=== PATIENT | male | born 1990 | race Caucasian/White ===

== ENCOUNTER 2016-11-23 11:19 | Emergency (ER) | payer SELFPAY ==
[~2016-11-23] VITALS: Ht 180.3 cm; Wt 100.0 kg
[~2016-11-23 11:19] MED LIST: AUGM875T PO; BACT2OIN TOP; BACT800T5 PO; CEPH500 PO; DESE1CRE TOP; DICL50TA3 PO
[2016-11-23 11:20] VITALS: BP 167/104; PULSE 82; RESP 18; TEMP 97.9; O2SAT 98
== END 2016-11-23 14:20 | disposition left against medical advice (07) ==
LOC: NED 11:19
DX: R07.9 Chest pain, unspecified (principal)
CPT/HCPCS: 99281

== ENCOUNTER 2017-01-15 17:44 | Emergency (ER) | payer SELFPAY ==
[~2017-01-15] VITALS: Ht 180.3 cm; Wt 86.4 kg
[2017-01-15] MEDS ORDERED: SODIUM CHLOR 0.9% 1000 ML INJ 1,000 ML IV SCH (17:53)
[2017-01-15 17:54] VITALS: BP 136/94; PULSE 68; RESP 18; TEMP 98.4; O2SAT 100
[2017-01-15 17:57] VITALS: BP 136/94; PULSE 80; RESP 16; O2SAT 100
[2017-01-15] MEDS ORDERED: MORPHINE SULFATE 4 MG/ML INJ IV ONE (18:00)
[2017-01-15] MEDS ORDERED: ONDANSETRON HCL 4 MG/2 ML VIAL IVP ONE (18:00)
[2017-01-15] MEDS ORDERED: DIPHTH/TETANUS/ACEL PERTUSSIS (BOOSTER) 0.5 ML VIAL/PFS IM ONE (18:00)
--- NOTE | 2017-01-15 18:11 | PD ---
HPI Chief Complaint: Head Injury Time Seen by Provider: 17:53 Travel History International Travel<30 days: No Contact w/Intl Traveler<30days: No Traveled to known affect area: No History of Present Illness HPI 26-year-old male came to the emergency room with history of a large tree limb falling on his head while he was trying to help his friend cutting a tree. Patient had positive loss of consciousness and some retrograde amnesia. He was brought in boarded and collared by EMS. Upon arrival patient had a GCS of 15 and was answering questions appropriately but seemed anxious. He is complaining that his left shoulder on the scapular area hurts. His called 911 when she heard the noise outside the house and went running and found him unconscious. Patient is otherwise a healthy person. Vital signs were relatively stable. [facility] Past Medical History Narrative Medical List of his past medical, surgical, social and family history is reviewed from the nursing note. Asthma: Yes Anxiety: Yes Depression: Yes Respiratory: Yes Social History Alcohol Use: No Tobacco Use: No Substance Use: No Allergies-Medications (Allergen,Severity, Reaction): Coded Allergies: No Known Allergies (Unverified , 01/15/17) Comments No known drug allergies. Reported Meds & Prescriptions Reported Meds & Active Scripts Active Ibuprofen 600 Mg Tab 600 Mg PO Q6H PRN Keflex (Cephalexin) 250 Mg Cap 250 Mg PO Q6H 7 Days Narrative Medication List of his home medications reviewed from the nursing note. Review of Systems Except as stated in HPI: all other systems reviewed are Neg Physical Exam Narrative GENERAL: Awake, alert, anxious, moderate distress, boarded and collared SKIN: Focused skin assessment warm/dry. 3 cm laceration over the right eyebrow , bleeding controlled. Left CVA abrasion HEAD: Atraumatic. Normocephalic. EYES: Pupils equal and round. No scleral icterus. No injection or drainage. Good extraocular eye movement. ENT: No nasal bleeding or discharge. Mucous membranes pink and moist. No intraoral injuries NECK: Trachea midline. No JVD. CARDIOVASCULAR: Regular rate and rhythm. No murmur appreciated. RESPIRATORY: No accessory muscle use. Clear to auscultation. Breath sounds equal bilaterally. GASTROINTESTINAL: Abdomen soft, non-tender, nondistended. Hepatic and splenic margins not palpable. MUSCULOSKELETAL: No obvious deformities. No clubbing. No cyanosis. No edema. Patient was rolled off the backboard. No step-offs or point tenderness. Left scapular tenderness NEUROLOGICAL: Awake and alert. No obvious cranial nerve deficits. Motor grossly within normal limits. Normal speech. PSYCHIATRIC: Appropriate mood and affect; insight and judgment normal. Data Data Last Documented VS Vital Signs Date Time Temp Pulse Resp B/P Pulse Ox O2 Delivery O2 Flow Rate FiO2 01/15/17 18:43 66 18 144/78 99 Room Air 01/15/17 17:54 98.4 Orders Basic Metabolic Panel (Bmp) (01/15/17 17:53) Complete Blood Count With Diff (01/15/17 17:53) Ct Brain W/O Iv Contrast(Rout) (01/15/17 17:53) Ct Cerv Spine W/O Contrast (01/15/17 17:53) Ct Abd/Pel W Iv Contrast(Rout) (01/15/17 17:53) Ct Thorax/ Chest W Iv Contrast (01/15/17 17:53) Morphine Inj (Morphine Inj) (01/15/17 18:00) Ondansetron Inj (Zofran Inj) (01/15/17 18:00) Rhfq-Fjx-Vfkhui (Booster) Inj (Boostrix (01/15/17 18:00) Sodium Chlor 0.9% 1000 Ml Inj (Ns 1000 M (01/15/17 17:53) Lidocai-Epi 1%-1:100,000 Inj (Xylocaine- (01/15/17 18:30) Ketorolac Inj (Toradol Inj) (01/15/17 19:15) Iohexol 350 Inj (Omnipaque 350 Inj) (01/15/17 19:36) Labs Laboratory Tests Test 01/15/17 18:12 White Blood Count 8.6 TH/MM3 Red Blood Count 4.90 MIL/MM3 Hemoglobin 14.8 GM/DL Hematocrit 44.0 % Mean Corpuscular Volume 89.9 FL Mean Corpuscular Hemoglobin 30.1 PG Mean Corpuscular Hemoglobin 33.5 % Concent Red Cell Distribution Width 14.0 % Platelet Count 216 TH/MM3 Mean Platelet Volume 8.2 FL Neutrophils (%) (Auto) 62.2 % Lymphocytes (%) (Auto) 25.4 % Monocytes (%) (Auto) 7.6 % Eosinophils (%) (Auto) 4.0 % Basophils (%) (Auto) 0.8 % Neutrophils # (Auto) 5.3 TH/MM3 Lymphocytes # (Auto) 2.2 TH/MM3 Monocytes # (Auto) 0.7 TH/MM3 Eosinophils # (Auto) 0.3 TH/MM3 Basophils # (Auto) 0.1 TH/MM3 CBC Comment DIFF FINAL Differential Comment Sodium Level 141 MEQ/L Potassium Level 3.8 MEQ/L Chloride Level 106 MEQ/L Carbon Dioxide Level 28.5 MEQ/L Anion Gap 7 MEQ/L Blood Urea Nitrogen 15 MG/DL Creatinine 1.12 MG/DL Estimat Glomerular Filtration 79 ML/MIN Rate Random Glucose 88 MG/DL Calcium Level 8.6 MG/DL MDM Medical Decision Making Medical Screen Exam Complete: Yes Emergency Medical Condition: Yes Medical Record Reviewed: Yes Differential Diagnosis Intracranial bleed, skull fracture, cervical fracture, intrathoracic injury, scapular fracture, intra-abdominal injury Narrative Course 6:11 PM awaiting for the blood test results of the CAT scan to be done and resulted. Patient is getting IV fluid and pain medicated for pain. His does not remember his last tetanus dose. Patient will get a tetanus shot today. Eventually the laceration will be repaired by the PA. Please refer to her procedure notes. 6:55 PM all the blood test results have returned and they're within normal limit. Awaiting for the CAT scan to be done and resulted. 8 PM CAT scan results of back and within normal limits. I will discharge this patient home. Procedures EKG Prior to Arrival: No Diagnosis Primary Impression: Blunt trauma Additional Impressions: Head injury Qualified Code: S09.90XA - Head injury, initial encounter Facial laceration Qualified Code: S01.81XA - Facial laceration, initial encounter Contusion Qualified Code: S20.222A - Contusion of left back wall of thorax, initial encounter Concussion Qualified Code: S06.0X1A - Concussion, with LOC of 30 min or less, initial encounter Referrals: Primary Care Physician 2 days Additional Instructions: Please return to the ER if the condition worsens or any other new concerns. Take the medication as per the prescription direction. Follow-up with your primary care in couple days. The stitches need to be taken out in 7-10 days. Med/Other Pt SpecificInfo: Prescription(s) given Scripts Ibuprofen 600 Mg Hhr006 Mg PO Q6H PRN (Pain/Inflammation) #40 TAB Ref 0 Prov:Renny Tran MD 01/15/17 Cephalexin (Keflex)250 Mg Sow248 Mg PO Q6H 7 Days Ref 0 Prov:Renny Tran MD 01/15/17 Disposition: 01 DISCHARGE HOME Condition: Stable Renny Tran MD January 15, 2017 18:11
--- NOTE | 2017-01-15 18:16 | PD ---
Physical Exam Date Seen by Provider: January 15, 2017 Time Seen by Provider: 18:15 Data Data Last Documented VS Vital Signs Date Time Temp Pulse Resp B/P Pulse Ox O2 Delivery O2 Flow Rate FiO2 01/15/17 18:43 66 18 144/78 99 Room Air 01/15/17 17:54 98.4 Orders Basic Metabolic Panel (Bmp) (01/15/17 17:53) Complete Blood Count With Diff (01/15/17 17:53) Ct Brain W/O Iv Contrast(Rout) (01/15/17 17:53) Ct Cerv Spine W/O Contrast (01/15/17 17:53) Ct Abd/Pel W Iv Contrast(Rout) (01/15/17 17:53) Ct Thorax/ Chest W Iv Contrast (01/15/17 17:53) Morphine Inj (Morphine Inj) (01/15/17 18:00) Ondansetron Inj (Zofran Inj) (01/15/17 18:00) Nfcu-Mun-Pvkgtq (Booster) Inj (Boostrix (01/15/17 18:00) Sodium Chlor 0.9% 1000 Ml Inj (Ns 1000 M (01/15/17 17:53) Lidocai-Epi 1%-1:100,000 Inj (Xylocaine- (01/15/17 18:30) Ketorolac Inj (Toradol Inj) (01/15/17 19:15) Labs Laboratory Tests Test 01/15/17 18:12 White Blood Count 8.6 TH/MM3 Red Blood Count 4.90 MIL/MM3 Hemoglobin 14.8 GM/DL Hematocrit 44.0 % Mean Corpuscular Volume 89.9 FL Mean Corpuscular Hemoglobin 30.1 PG Mean Corpuscular Hemoglobin 33.5 % Concent Red Cell Distribution Width 14.0 % Platelet Count 216 TH/MM3 Mean Platelet Volume 8.2 FL Neutrophils (%) (Auto) 62.2 % Lymphocytes (%) (Auto) 25.4 % Monocytes (%) (Auto) 7.6 % Eosinophils (%) (Auto) 4.0 % Basophils (%) (Auto) 0.8 % Neutrophils # (Auto) 5.3 TH/MM3 Lymphocytes # (Auto) 2.2 TH/MM3 Monocytes # (Auto) 0.7 TH/MM3 Eosinophils # (Auto) 0.3 TH/MM3 Basophils # (Auto) 0.1 TH/MM3 CBC Comment DIFF FINAL Differential Comment Sodium Level 141 MEQ/L Potassium Level 3.8 MEQ/L Chloride Level 106 MEQ/L Carbon Dioxide Level 28.5 MEQ/L Anion Gap 7 MEQ/L Blood Urea Nitrogen 15 MG/DL Creatinine 1.12 MG/DL Estimat Glomerular Filtration 79 ML/MIN Rate Random Glucose 88 MG/DL Calcium Level 8.6 MG/DL MDM Supervised Visit with STEVEN: No Narrative Course This patient was initially evaluated by Dr. Tran. Please see her note for those details. On my exam the patient is alert, laying flat in a c-collar. There is a 3 cm laceration in the right eyebrow. There is a 3-4 cm linear abrasion in the midline of the forehead. Laceration repair was performed. Please see my procedure note for details. Dr. Tran retains care of this patient. Please see her note for disposition. Procedures Procedure Narrative LACERATION LOCATION: Right eyebrow LENGTH: 3 cm NUMBER OF STITCHES/GINA: 7 REPAIR: The area of the laceration was prepped with Betadine and sterilely draped. The laceration was infiltrated with 1% lidocaine with epinephrine. The wound was copiously irrigated and explored without evidence of foreign body, tendon injury or neurovascular injury. The wound was closed using 6-0 nylon. This was a single layer repair. A sterile dressing was applied. The patient was advised to keep the dressing clean and dry. Patient tolerated the procedure well. Scripts No Active Prescriptions or Reported Meds Mitzy Dela Cruz January 15, 2017 18:16
[2017-01-15] MEDS ORDERED: LIDOCAINE 1%/EPINEPHrine 1:100,000 SOLN 20 ML VIAL INFIL ONE (18:30)
[2017-01-15 18:36] LABS: AUTOMATED NEUTROPHIL # 5.3 TH/MM3 (1.8-7.7); BASOPHIL # 0.1 TH/MM3 (0-0.2); BASOPHIL % 0.8 % (0.0-2.0); EOSINOPHIL # 0.3 TH/MM3 (0-0.4); HEMO FLAGS DIFF FINAL; LYMPH % 25.4 % (9.0-44.0); LYMPHOCYTE # 2.2 TH/MM3 (1.0-4.8); MEAN CELL VOLUME 89.9 FL (80.0-100.0); MEAN CORPUSCULAR HEMOGLOBIN 30.1 PG (27.0-34.0); MEAN CORPUSCULAR HGB CONC 33.5 % (32.0-36.0); MONO % 7.6 % (0.0-8.0); NEUT % 62.2 % (16.0-70.0); PLATELET COUNT 216 TH/MM3 (150-450); WHITE BLOOD COUNT 8.6 TH/MM3 (4.0-11.0)
[2017-01-15 18:43] VITALS: BP 144/78; PULSE 66; RESP 18; O2SAT 99
[2017-01-15 18:52] LABS: BICARBONATE 28.5 MEQ/L (21.0-32.0); POTASSIUM 3.8 MEQ/L (3.5-5.1)
[2017-01-15] MEDS ORDERED: KETOROLAC TROMETHAMINE 30 MG/ML (IVP) VIAL IV PUSH ONE (19:15)
[2017-01-15] MEDS ORDERED: IOHEXOL 350 MG/ML 10 ML VIAL (for RAD DIAG) IV ONE (19:36)
--- NOTE | 2017-01-15 19:48 | RADRPT ---
EXAM DATE/TIME: 01/15/2017 19:29 [facility] COMPARISON: No previous studies available for comparison. INDICATIONS : Trauma, tree limb fell on head. Laceration above right eye. RADIATION DOSE: 66.83 CTDIvol (mGy) MEDICAL HISTORY : None SURGICAL HISTORY : None. ENCOUNTER: Initial ACUITY: 1 day PAIN SCALE: 6/10 LOCATION: Left cranial TECHNIQUE: Multiple contiguous axial images were obtained of the head. Using automated exposure control and adj ustment of the mA and/or kV according to patient size, radiation dose was kept as low as reasonably a chievable to obtain optimal diagnostic quality images. FINDINGS: CEREBRUM: The ventricles are normal for age. No evidence of midline shift, mass lesion, hemorrhage or acute in farction. No extra-axial fluid collections are seen. POSTERIOR FOSSA: The cerebellum and brainstem are intact. The 4th ventricle is midline. The cerebellopontine angle i s unremarkable. EXTRACRANIAL: The visualized portion of the orbits is intact. Right-sided facial swelling. SKULL: The calvaria is intact. No evidence of skull fracture. CONCLUSION: No acute intracranial disease. Murphy Johnson MD on January 15, 2017 at 19:45 Board Certified Radiologist. This report was verified electronically.
--- NOTE | 2017-01-15 19:49 | RADRPT ---
EXAM DATE/TIME: 01/15/2017 19:29 [facility] COMPARISON: No previous studies available for comparison. INDICATIONS : Trauma, tree limb fell on head. Left shoulder pain. RADIATION DOSE: 21.57 CTDIvol (mGy) MEDICAL HISTORY : None SURGICAL HISTORY : None. ENCOUNTER: Initial ACUITY: 1 day PAIN SCALE: 4/10 LOCATION: Left neck TECHNIQUE: Volumetric scanning of the cervical spine was performed. Multiplanar reconstructions in the sagittal, coronal and oblique axial planes were performed. Using automated exposure control and adjustment o f the mA and/or kV according to patient size, radiation dose was kept as low as reasonably achievable to obtain optimal diagnostic quality images. FINDINGS: VERTEBRAE: Normal vertebral body height. ALIGNMENT: No evidence of subluxation. C2-C3: The bony spinal canal is normal in size. No evidence of disc bulge or herniation. The neural forami na are bilaterally patent. C3-C4: The bony spinal canal is normal in size. No evidence of disc bulge or herniation. The neural forami na are bilaterally patent. C4-C5: The bony spinal canal is normal in size. No evidence of disc bulge or herniation. The neural forami na are bilaterally patent. C5-C6: The bony spinal canal is normal in size. No evidence of disc bulge or herniation. The neural forami na are bilaterally patent. C6-C7: The bony spinal canal is normal in size. No evidence of disc bulge or herniation. The neural forami na are bilaterally patent. C7-T1: The bony spinal canal is normal in size. No evidence of disc bulge or herniation. The neural forami na are bilaterally patent. CONCLUSION: No fracture or subluxation. Murphy Johnson MD on January 15, 2017 at 19:46 Board Certified Radiologist. This report was verified electronically.
--- NOTE | 2017-01-15 19:53 | RADRPT ---
EXAM DATE/TIME: 01/15/2017 19:36 [facility] COMPARISON: No previous studies available for comparison. INDICATIONS : Trauma, tree limb fell on head. Left shoulder pain. IV CONTRAST: 96 cc Omnipaque 350 (iohexol) IV ; Cumulative dose for multiple exams. RADIATION DOSE: 16.31 CTDIvol (mGy) ; Combined studies - Thorax/Abdomen/Pelvis MEDICAL HISTORY : None SURGICAL HISTORY : None. ENCOUNTER: Initial ACUITY: 1 day PAIN SCALE: 6/10 LOCATION: Left chest TECHNIQUE: Volumetric scanning of the chest was performed. Using automated exposure control and adjustment of t he mA and/or kV according to patient size, radiation dose was kept as low as reasonably achievable to obtain optimal diagnostic quality images. FINDINGS: LUNGS: There is no consolidation or pneumothorax. No concerning pulmonary nodule is visualized. PLEURA: There is no pleural thickening or pleural effusion. MEDIASTINUM: The heart and great vessels demonstrate no acute abnormality. There is no mediastinal or hilar lymph adenopathy. AXILLAE: Within normal limits. No lymphadenopathy. SKELETAL: Within normal limits for patient age. MISCELLANEOUS: The visualized upper abdominal organs demonstrate no acute abnormality. CONCLUSION: No acute thoracic process. Murphy Johnson MD on January 15, 2017 at 19:50 Board Certified Radiologist. This report was verified electronically.
--- NOTE | 2017-01-15 19:55 | RADRPT ---
EXAM DATE/TIME: 01/15/2017 19:36 [facility] COMPARISON: No previous studies available for comparison. INDICATIONS : Trauma, tree limb fell on head. IV CONTRAST: 96 cc Omnipaque 350 (iohexol) IV ; Cumulative dose for multiple exams. ORAL CONTRAST: No oral contrast ingested. RADIATION DOSE: 16.31 CTDIvol (mGy) ; Combined studies - Thorax/Abdomen/Pelvis MEDICAL HISTORY : None SURGICAL HISTORY : None. ENCOUNTER: Initial ACUITY: 1 day PAIN SCALE: 3/10 LOCATION: Bilateral abdomen TECHNIQUE: Volumetric scanning of the abdomen and pelvis was performed. Using automated exposure control and ad justment of the mA and/or kV according to patient size, radiation dose was kept as low as reasonably achievable to obtain optimal diagnostic quality images. FINDINGS: LOWER LUNGS: The visualized lower lungs are clear. LIVER: Homogeneous density without lesion. There is no dilation of the biliary tree. No calcified gallston es. SPLEEN: Normal size without lesion. PANCREAS: Within normal limits. KIDNEYS: Normal in size and shape. There is no mass, stone or hydronephrosis. ADRENAL GLANDS: Within normal limits. VASCULAR: There is no aortic aneurysm. BOWEL/MESENTERY: The stomach, small bowel, and colon demonstrate no acute abnormality. There is no free intraperitone al air or fluid. ABDOMINAL WALL: Within normal limits. RETROPERITONEUM: There is no lymphadenopathy. BLADDER: No wall thickening or mass. REPRODUCTIVE: Within normal limits. INGUINAL: There is no lymphadenopathy or hernia. MUSCULOSKELETAL: Within normal limits for patient age. CONCLUSION: No acute intra-abdominal process. Murphy Johnson MD on January 15, 2017 at 19:51 Board Certified Radiologist. This report was verified electronically.
[2017-01-15] MEDS ORDERED: IBUP-232 PO (20:03)
[2017-01-15] MEDS ORDERED: CEPH-459 PO (20:03)
== END 2017-01-15 20:22 | disposition home or self-care (01) ==
LOC: NEPD 17:44
DX: S06.9X9A Unspecified intracranial injury with loss of consciousness of unspecified duration, initial encounter (principal); S01.111A Laceration without foreign body of right eyelid and periocular area, initial encounter; S20.222A Contusion of left back wall of thorax, initial encounter; S06.0X1A Concussion with loss of consciousness of 30 minutes or less, initial encounter; W20.8XXA Other cause of strike by thrown, projected or falling object, initial encounter; Y93.H9 Activity, other involving exterior property and land maintenance, building and construction; Y92.007 Garden or yard of unspecified non-institutional (private) residence as the place of occurrence of the external cause
CPT/HCPCS: 12013; 70450; 71260; 72125; 74177; 80048; 85025; 90471; 90715; 96361; 96374; 96375; 99284; J1885; J2270; J2405; J7030; Q9967

== ENCOUNTER 2017-02-15 18:33 | Emergency (ER) | payer SELFPAY ==
[~2017-02-15] VITALS: Ht 180.3 cm; Wt 90.0 kg
[~2017-02-15 18:33] MED LIST changes: -AUGM875T PO; -BACT2OIN TOP; -BACT800T5 PO; +CEPH-459 PO; -CEPH500 PO; -DESE1CRE TOP; -DICL50TA3 PO; +IBUP-232 PO
[2017-02-15 18:38] VITALS: BP 157/76; PULSE 102; RESP 20; TEMP 99.1; O2SAT 98
--- NOTE | 2017-02-15 21:32 | PD ---
HPI Chief Complaint: Skin Problem Time Seen by Provider: 21:32 Travel History International Travel<30 days: No Contact w/Intl Traveler<30days: No Traveled to known affect area: No History of Present Illness HPI 26 YO M presents to the ED for evaluation of 2 day history of painful "spider bite" of the left buttock. Patient can identify no acute injury to the area. He endorses chills and low-grade fever. He denies nausea, vomiting. He denies history of MRSA. He states that tetanus immunization is up-to-date. Also complains of "months long" history of rash distributed over the torso. Denies pruritis. Denies new exposures. PFSH Past Medical History Asthma: Yes Anxiety: Yes Depression: Yes Respiratory: Yes Social History Alcohol Use: No Tobacco Use: No Substance Use: No Allergies-Medications (Allergen,Severity, Reaction): Coded Allergies: No Known Allergies (Unverified , 02/15/17) Reported Meds & Prescriptions Reported Meds & Active Scripts Active Ibuprofen 800 Mg Tab 800 Mg PO Q8H PRN Keflex (Cephalexin) 500 Mg Cap 500 Mg PO Q8H Bactrim DS (Sulfamethoxazole-Trimethoprim) 800-160 Mg Tab 1 Tab PO BID Ketoconazole Topical 2% Sham 1 Applic TOPICAL DAILY Review of Systems Except as stated in HPI: all other systems reviewed are Neg Physical Exam Narrative GENERAL: Well-nourished, well-developed nontoxic appearing white male in no acute distress. SKIN: There is an indurated area left of the gluteal cleft which measures about 4 cm in diameter. It is mildly fluctuant but there is no pointing or drainage. There is a zone of inflammation around it but no lymphangitis. SKIN: Focused skin assessment warm/dry. Patient has several large hypopigmented plaques of the chest and back which are consistent with tinea versicolor. HEAD: Normocephalic. EYES: No scleral icterus. No injection or drainage. NECK: Supple, trachea midline. No JVD or lymphadenopathy. CARDIOVASCULAR: Regular rate and rhythm without murmurs, gallops, or rubs. RESPIRATORY: Breath sounds clear and equal bilaterally. No accessory muscle use. GASTROINTESTINAL: Abdomen soft, non-tender, nondistended. Active bowel sounds MUSCULOSKELETAL: No cyanosis, or edema. Ambulatory. Moves the extremities spontaneously. BACK: Nontender without obvious deformity. No CVA tenderness. Data Data Last Documented VS Vital Signs Date Time Temp Pulse Resp B/P Pulse Ox O2 Delivery O2 Flow Rate FiO2 02/15/17 23:18 101 18 148/68 98 Room Air 02/15/17 21:51 99.1 Orders Basic Metabolic Panel (Bmp) (02/15/17 21:35) Complete Blood Count With Diff (02/15/17 21:35) Blood Culture (02/15/17 21:35) Wound Culture And Gram Stain (02/15/17 21:35) Iv Access Insert/Monitor (02/15/17 21:35) Ketorolac Inj (Toradol Inj) (02/15/17 21:45) Sodium Chloride 0.9% Flush (Ns Flush) (02/15/17 21:45) Clindamycin Inj (Cleocin Inj) (02/15/17 21:45) Lidocaine 1% Inj (50 Ml) (Xylocaine 1% I (02/15/17 21:45) Acetamin-Hydrocod 325-5 Mg ([place] 5-325 (02/15/17 21:45) Labs Laboratory Tests Test 02/15/17 21:40 White Blood Count 11.4 TH/MM3 Red Blood Count 4.84 MIL/MM3 Hemoglobin 14.6 GM/DL Hematocrit 42.9 % Mean Corpuscular Volume 88.6 FL Mean Corpuscular Hemoglobin 30.2 PG Mean Corpuscular Hemoglobin 34.1 % Concent Red Cell Distribution Width 13.1 % Platelet Count 211 TH/MM3 Mean Platelet Volume 8.3 FL Neutrophils (%) (Auto) 70.8 % Lymphocytes (%) (Auto) 18.6 % Monocytes (%) (Auto) 8.3 % Eosinophils (%) (Auto) 1.4 % Basophils (%) (Auto) 0.9 % Neutrophils # (Auto) 8.1 TH/MM3 Lymphocytes # (Auto) 2.1 TH/MM3 Monocytes # (Auto) 0.9 TH/MM3 Eosinophils # (Auto) 0.2 TH/MM3 Basophils # (Auto) 0.1 TH/MM3 CBC Comment DIFF FINAL Differential Comment Sodium Level 135 MEQ/L Potassium Level 3.9 MEQ/L Chloride Level 98 MEQ/L Carbon Dioxide Level 27.2 MEQ/L Anion Gap 10 MEQ/L Blood Urea Nitrogen 19 MG/DL Creatinine 1.08 MG/DL Estimat Glomerular Filtration 83 ML/MIN Rate Random Glucose 92 MG/DL Calcium Level 9.2 MG/DL [facility] Medical Decision Making Medical Screen Exam Complete: Yes Emergency Medical Condition: Yes Differential Diagnosis abscess versus cellulitis versus pityriasis versus tinea versicolor versus Narrative Course 26 YO M presents to the ED for evaluation of 2 day history of painful "spider bite" of the left buttock. Patient can identify no acute injury to the area. He endorses chills and low-grade fever. He denies nausea, vomiting. He denies history of MRSA. He states that tetanus immunization is up-to-date. Also complains of "months long" history of rash distributed over the torso. Denies pruritis. Denies new exposures. Vitals reviewed. Physical exam reveals an abscess is left of the gluteal cleft and several large, hypopigmented areas on the abdomen and back that are consistent with tinea versicolor. Blood cultures and wound cultures were obtained. Abscess I&D was performed. See my procedure note for details. Patient was administered 900 mg clindamycin IV. Lab work is unremarkable. He is prescribed a course of Bactrim, Keflex and ibuprofen. He is instructed take the antibiotics as prescribed, return to the ED in 2 days for packing removal and wound evaluation, sooner if symptoms worsen. He was prescribed Q cause all shampoo and given detailed instructions in its use. He indicated understanding of the discharge instructions and is agreeable to the care plan. This patient is stable and discharged home. Diagnosis Primary Impression: Abscess Additional Impression: Tinea versicolor Referrals: Primary Care Physician Patient Instructions: Abscess (GEN), General Instructions Additional Instructions: Rest, hydrate. Do not change the dressing for 24 hours. You may bathe normally. Do not submerge the wound. After bathing pat of wound dry. Allow the wound to air dry for 10-15 minutes. Apply a thin layer of antibiotic ointment and a clean, dry dressing. Take the antibiotics as they are prescribed, even if your symptoms resolve. 800 mg ibuprofen up to 3 times a day, as prescribed,, as needed. Return to the ED in 48 hours for packing removal and wound recheck. Apply ketoconazole shampoo 5 minutes a day, rinse thoroughly. Repeat until rash clears. Return to the ED for any urgent or emergent medical condition. Med/Other Pt SpecificInfo: Prescription(s) given Scripts Ibuprofen 800 Mg [id number] Mg PO Q8H PRN (Pain/Inflammation) #15 TAB Ref 0 Prov:Nora Prieto 02/15/17 Cephalexin (Keflex)500 Mg Iwn859 Mg PO Q8H #30 CAP Ref 0 Prov:Nora Prieto 02/15/17 Sulfamethoxazole-Trimethoprim (Bactrim DS)800-160 Mg Tab1 Tab PO BID #14 TAB Ref 0 Prov:Nora Prieto 02/15/17 Ketoconazole Topical 2% Sham1 Applic TOPICAL DAILY #50 BOTTLE Ref 0 Prov:Nora Prieto 02/15/17 Disposition: 01 DISCHARGE HOME Condition: Stable Mitzy Dela Cruz Feb 15, 2017 21:32
[2017-02-15] MEDS ORDERED: KETOROLAC TROMETHAMINE 30 MG/ML (IVP) VIAL IVP ONE (21:45)
[2017-02-15] MEDS ORDERED: ACETAMINOPHEN/HYDROcodone 325 MG/5 MG TAB PO ONE (21:45)
[2017-02-15] MEDS ORDERED: SODIUM CHLORIDE 0.9% FLUSH 10 ML FLUSH IVF PRN (21:45)
[2017-02-15] MEDS ORDERED: CLINDAMYCIN INJ 900 MG in SODIUM CHLORIDE 0.9% INJ 100 ML IV ONE (21:45)
[2017-02-15] MEDS ORDERED: LIDOCAINE HCL 1% 50 ML VIAL INFIL ONE (21:45)
[2017-02-15 21:51] VITALS: BP 170/79; PULSE 103; RESP 18; TEMP 99.1; O2SAT 95
[2017-02-15 21:58] LABS: AUTOMATED NEUTROPHIL # 8.1 TH/MM3 (1.8-7.7); BASOPHIL # 0.1 TH/MM3 (0-0.2); BASOPHIL % 0.9 % (0.0-2.0); EOSINOPHIL # 0.2 TH/MM3 (0-0.4); EOSINOPHIL % 1.4 % (0.0-4.0); HEMATOCRIT 42.9 % (39.0-51.0); HEMO FLAGS DIFF FINAL; LYMPH % 18.6 % (9.0-44.0); LYMPHOCYTE # 2.1 TH/MM3 (1.0-4.8); MEAN CELL VOLUME 88.6 FL (80.0-100.0); MEAN CORPUSCULAR HEMOGLOBIN 30.2 PG (27.0-34.0); MEAN CORPUSCULAR HGB CONC 34.1 % (32.0-36.0); MONO % 8.3 % (0.0-8.0); NEUT % 70.8 % (16.0-70.0); PLATELET COUNT 211 TH/MM3 (150-450); RED BLOOD COUNT 4.84 MIL/MM3 (4.50-5.90); RED CELL DISTRIBUTION WIDTH 13.1 % (11.6-17.2); WHITE BLOOD COUNT 11.4 TH/MM3 (4.0-11.0)
[2017-02-15 22:26] LABS: BICARBONATE 27.2 MEQ/L (21.0-32.0); POTASSIUM 3.9 MEQ/L (3.5-5.1)
[2017-02-15 23:18] VITALS: BP 148/68; PULSE 101; RESP 18; O2SAT 98
[2017-02-15] MEDS ORDERED: BACT800T5 PO (23:21)
[2017-02-15] MEDS ORDERED: KETO2SHA TOPICAL (23:21)
[2017-02-15] MEDS ORDERED: CEPH-460 PO (23:21)
[2017-02-15] MEDS ORDERED: IBUP800T23 PO (23:22)
== END 2017-02-15 23:57 | disposition home or self-care (01) ==
LOC: NEPD 18:33
DX: L02.31 Cutaneous abscess of buttock (principal); B95.62 Methicillin resistant Staphylococcus aureus infection as the cause of diseases classified elsewhere; B95.1 Streptococcus, group B, as the cause of diseases classified elsewhere; B36.0 Pityriasis versicolor
CPT/HCPCS: 10061; 80048; 85025; 86403; 87040; 87070; 87186; 96374; 96375; 99284; J1885; 87205

== ENCOUNTER 2017-02-18 21:54 | Emergency (ER) | payer SELFPAY ==
[~2017-02-18] VITALS: Ht 180.3 cm; Wt 95.0 kg
[~2017-02-18 21:54] MED LIST changes: +BACT800T5 PO; -CEPH-459 PO; +CEPH-460 PO; -IBUP-232 PO; +IBUP800T23 PO; +KETO2SHA TOPICAL
[2017-02-18 21:56] VITALS: BP 149/71; PULSE 99; RESP 18; TEMP 97.6; O2SAT 100
--- NOTE | 2017-02-18 22:57 | PD ---
HPI Chief Complaint: Wound/Suture/Staple Re-Check Time Seen by Provider: 22:49 Travel History International Travel<30 days: No Contact w/Intl Traveler<30days: No Traveled to known affect area: No History of Present Illness HPI Patient 26-year-old male presents emergency department for reevaluation of abscess the right gluteus. Patient was here 2 days ago and had an incision and drainage and packing placed. Patient is coming by his and they stated the packing is no longer there they are unsure if it fell out or inside of him. States his been taking his Anaprox as prescribed, states the pain is been gradually increasing. Denies any fever denies abdominal pain nausea vomiting diarrhea constipation. PFSH Past Medical History Asthma: Yes Anxiety: Yes Depression: Yes Diminished Hearing: No Respiratory: Yes (ASTHMA) Social History Alcohol Use: No Tobacco Use: No Substance Use: No Allergies-Medications (Allergen,Severity, Reaction): Coded Allergies: PEANUTS (Verified Allergy, Severe, Anaphylaxis, 02/18/17) Reported Meds & Prescriptions Reported Meds & Active Scripts Active Ibuprofen 800 Mg Tab 800 Mg PO Q8H PRN Keflex (Cephalexin) 500 Mg Cap 500 Mg PO Q8H Bactrim DS (Sulfamethoxazole-Trimethoprim) 800-160 Mg Tab 1 Tab PO BID Ketoconazole Topical 2% Sham 1 Applic TOPICAL DAILY Review of Systems Except as stated in HPI: all other systems reviewed are Neg Physical Exam Narrative GENERAL: Well-nourished, well-developed patient. SKIN: The right gluteus well removed from the rectum and the gluteal cleft there is a golf ball sized abscess which is fairly tender, incision is noted and is closing, no packing observed. The areas certainly race enough to make me suspect that there is significant fluid still within the abscess. HEAD: Normocephalic. EYES: No scleral icterus. No injection or drainage. NECK: Supple, trachea midline. No JVD or lymphadenopathy. CARDIOVASCULAR: Regular rate and rhythm without murmurs, gallops, or rubs. RESPIRATORY: Breath sounds equal bilaterally. No accessory muscle use. GASTROINTESTINAL: Abdomen soft, non-tender, nondistended. MUSCULOSKELETAL: No cyanosis, or edema. BACK: Nontender without obvious deformity. No CVA tenderness. Data Data Last Documented VS Vital Signs Date Time Temp Pulse Resp B/P Pulse Ox O2 Delivery O2 Flow Rate FiO2 02/18/17 21:56 97.6 99 18 149/71 100 Room Air Orders Lidocai-Epi 1%-1:100,000 Inj (Xylocaine- (02/18/17 23:00) Tramadol (Ultram) (02/18/17 23:00) MDM Medical Decision Making Medical Screen Exam Complete: Yes Emergency Medical Condition: Yes Differential Diagnosis Abscess, retained packing, cellulitis Narrative Course Patient was roomed emergency department, I recommended that he undergo repeat incision and drainage to assess whether there is any retained packing or any additional fluid inside the wound, was incision and drainage by Maryam KIRAN. No drainage was reported, she explored the wound and no foreign body seen. Chest the patient to continue his antibiotics and recommended return to the emergency department in 2 days for repeat examination he is agreeable. Diagnosis Primary Impression: Abscess Additional Instructions: Continue taking your antibiotic as prescribed, ibuprofen 600 mg every 8 hours as needed for pain. Recommend return to the emergency department in 48 hours for wound check. Disposition: 01 DISCHARGE HOME Condition: Stable Mike Oliva MD Feb 18, 2017 22:56
[2017-02-18] MEDS ORDERED: LIDOCAINE 1%/EPINEPHrine 1:100,000 SOLN 20 ML VIAL INFIL ONE (23:00)
[2017-02-18] MEDS ORDERED: traMADol HCL 50 MG TAB PO ONE (23:00)
--- NOTE | 2017-02-18 23:49 | PD ---
Physical Exam Date Seen by Provider: Feb 18, 2017 Time Seen by Provider: 23:47 Narrative For full history and physical examination please see previous provider's note. Performed an I&D to patient's right buttock abscess. Data Data Last Documented VS Vital Signs Date Time Temp Pulse Resp B/P Pulse Ox O2 Delivery O2 Flow Rate FiO2 02/18/17 21:56 97.6 99 18 149/71 100 Room Air Orders Lidocai-Epi 1%-1:100,000 Inj (Xylocaine- (02/18/17 23:00) Tramadol (Ultram) (02/18/17 23:00) MDM Supervised Visit with STEVEN: Yes Procedures Procedure Narrative After the risks and benefits were discussed the following procedure was performed: Patient and girlfriend were adamant that there was packing still in place despite seeing a piece of it fall out. INCISION AND DRAINAGE OF ABSCESS: The area was prepped and was sterilely draped. A subcutaneous wheal of 1 % Xylocaine with a total number 3 mL was used to anesthetize the area. The area was properly anesthetized. A number 11 scalpel was used to make a 1 -cm incision across the area of the abscess. The abscess was drained an irrigated with normal saline. No packing visible inside previous I&D site. There was no purulent drainage. Sterile dressing applied. Patient advised to have packing removed in two days. Diagnosis Primary Impression: Abscess Additional Instruction: Continue taking your antibiotic as prescribed, ibuprofen 600 mg every 8 hours as needed for pain. Recommend return to the emergency department in 48 hours for wound check. Disposition: 01 DISCHARGE HOME Condition: Stable Maryam Alarcon Feb 18, 2017 23:49
== END 2017-02-18 23:55 | disposition home or self-care (01) ==
LOC: NEPD 21:54
DX: L02.31 Cutaneous abscess of buttock (principal); J45.909 Unspecified asthma, uncomplicated; F41.9 Anxiety disorder, unspecified; F32.9 Major depressive disorder, single episode, unspecified
CPT/HCPCS: 10061

== ENCOUNTER 2017-06-22 08:17 | Emergency (ER) | payer MEDICAID ==
[~2017-06-22] VITALS: Ht 180.3 cm; Wt 92.0 kg
[2017-06-22 08:19] VITALS: BP 130/80; PULSE 104; RESP 20; TEMP 98.6; O2SAT 93
[2017-06-22] MEDS ORDERED: [UNRECOGNIZED DRUG - OTHER] (08:35)
[2017-06-22] MEDS ORDERED: ALBU0.63 NEB (08:35)
[2017-06-22] MEDS ORDERED: VENTAER INH (08:40)
--- NOTE | 2017-06-22 08:40 | PD ---
HPI Chief Complaint: Respiratory Distress Time Seen by Provider: 08:28 Travel History International Travel<30 days: No Contact w/Intl Traveler<30days: No Traveled to known affect area: No History of Present Illness HPI 26 years old male complains of coughing wheezing shortness of breath. Patient states that the symptoms started yesterday. Patient has history of asthma. Patient states that he ran out of his inhaler. Patient states the cough is persistent and productive. Patient denies any fever chills. Patient denies any chest pain. Patient is a smoker. 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/17 Reported Meds & Prescriptions Reported Meds & Active Scripts Active Ventolin Hfa 18 GM Inh (Albuterol Sulfate) 90 Mcg/Act Aer 2 Puff INH Q4-6H PRN Reported [inhaler for asthma ] Albuterol Neb (Albuterol Sulfate) 0.63 Mg/3 Ml Neb 0.63 Mg NEB Review of Systems General / Constitutional: No: Fever Eyes: No: Visual changes HENT: No: Headaches Cardiovascular: No: Chest Pain or Discomfort Respiratory: Positive: Cough, Shortness of Breath, Wheezing Gastrointestinal: No: Abdominal Pain Genitourinary: No: Dysuria Musculoskeletal: No: Pain Skin: No Rash Neurologic: No: Weakness Psychiatric: No: Depression Endocrine: No: Polydipsia Hematologic/Lymphatic: No: Easy Bruising Physical Exam Narrative GENERAL: Well-nourished, well-developed patient. SKIN: Focused skin assessment warm/dry. HEAD: Normocephalic. EYES: No scleral icterus. No injection or drainage. NECK: Supple, trachea midline. No JVD or lymphadenopathy. CARDIOVASCULAR: Regular rate and rhythm without murmurs, gallops, or rubs. RESPIRATORY: Breath sounds equal bilaterally. No accessory muscle use. Patient has moderate expiratory wheezes bilaterally. No rhonchi. GASTROINTESTINAL: Abdomen soft, non-tender, nondistended. MUSCULOSKELETAL: No cyanosis, or edema. BACK: Nontender without obvious deformity. No CVA tenderness. Neurologic exam normal. Data Data Last Documented VS Vital Signs Date Time Temp Pulse Resp B/P (MAP) Pulse Ox O2 Delivery O2 Flow Rate FiO2 06/22/17 08:30 20 94 Room Air 06/22/17 08:19 98.6 104 130/80 (97) Orders Orders Albuterol-Ipratropium Neb (Duoneb Neb) (06/22/17 08:45) Ed Discharge Order (06/22/17 09:16) [facility] Medical Decision Making Medical Screen Exam Complete: Yes Emergency Medical Condition: Yes Differential Diagnosis Differential diagnosis including acute exacerbation of asthma, bronchitis, pneumonia. Narrative Course 26 years old male complains of wheezing, coughing, shortness of breath. History of asthma. Albuterol with Atrovent unit dose treatment 3. Patient refused steroid. 9:18 AM. Reexamination patient feeling much better. Lung is clear. No wheezes. Diagnosis Primary Impression: Acute asthma exacerbation Qualified Codes: J45.41 - Moderate persistent asthma with (acute) exacerbation Patient Instructions: General Instructions Additional Instructions: Use inhaler as directed. Z-Edy as directed. Follow-up with personal physician. Return if persistent problem or worse. Med/Other Pt SpecificInfo: Prescription(s) given Scripts Albuterol 18 GM Inh (Ventolin Hfa 18 GM Inh) 90 Mcg/Act Aer 2 PUFF INH Q4-6H Y for SHORTNESS OF BREATH, #1 INHALER 0 Refills Prov: Robert Paulson MD 06/22/17 Disposition: 01 DISCHARGE HOME Condition: Stable Robert Paulson MD Jun 22, 2017 08:40
[2017-06-22] MEDS: RESP: ALBUTEROL 2.5 MG/IPRATROPIUM 0.5 MG NEB (SCH) INH ×2 (09:02→09:03)
== END 2017-06-22 09:48 | disposition home or self-care (01) ==
LOC: NEPC 08:17
DX: J45.41 Moderate persistent asthma with (acute) exacerbation (principal)
CPT/HCPCS: 94664; 99283

== ENCOUNTER 2017-10-04 15:24 | Emergency (ER) | payer MEDICAID, OTHER ==
[~2017-10-04] VITALS: Ht 180.3 cm; Wt 86.2 kg
[~2017-10-04 15:24] MED LIST changes: +ALBU0.63 NEB; -BACT800T5 PO; -CEPH-460 PO; -IBUP800T23 PO; -KETO2SHA TOPICAL; +VENTAER INH; +[UNRECOGNIZED DRUG - OTHER]
[2017-10-04 15:26] VITALS: BP 140/92; PULSE 108; RESP 18; TEMP 98.2; O2SAT 99
[2017-10-04 16:43] LABS: AUTOMATED NEUTROPHIL # 5.6 TH/MM3 (1.8-7.7); BASOPHIL % 0.7 % (0.0-2.0); EOSINOPHIL % 0.5 % (0.0-4.0); HEMATOCRIT 47.2 % (39.0-51.0); HEMOGLOBIN 16.1 GM/DL (13.0-17.0); LYMPH % 18.4 % (9.0-44.0); LYMPHOCYTE # 1.3 TH/MM3 (1.0-4.8); MEAN CELL VOLUME 87.6 FL (80.0-100.0); MEAN CORPUSCULAR HEMOGLOBIN 29.8 PG (27.0-34.0); MEAN PLATELET VOLUME 7.7 FL (7.0-11.0); MONO % 3.6 % (0.0-8.0); MONOCYTE # 0.3 TH/MM3 (0-0.9); NEUT % 76.8 % (16.0-70.0); PLATELET COUNT 256 TH/MM3 (150-450); RED BLOOD COUNT 5.39 MIL/MM3 (4.50-5.90); RED CELL DISTRIBUTION WIDTH 12.9 % (11.6-17.2); WHITE BLOOD COUNT 7.3 TH/MM3 (4.0-11.0)
[2017-10-04 16:56] LABS: ALBUMIN 4.4 GM/DL (3.4-5.0); ALT (GPT) 14 U/L (12-78); AST (GOT) 14 U/L (15-37); BICARBONATE 29.2 MEQ/L (21.0-32.0); BLOOD UREA NITROGEN 13 MG/DL (7-18); CALCIUM 9.1 MG/DL (8.5-10.1); CHLORIDE 106 MEQ/L (98-107); CREATININE 0.99 MG/DL (0.60-1.30); GLOMERULAR FILTRATION RATE 91 ML/MIN (>89); GLUCOSE,RANDOM 123 MG/DL (74-106); SODIUM (NA) 140 MEQ/L (136-145)
[2017-10-04 16:59] LABS: ALKALINE PHOSPHATASE 67 U/L (45-117); TOTAL BILIRUBIN ADULT 0.5 MG/DL (0.2-1.0); TOTAL PROTEIN 8.1 GM/DL (6.4-8.2)
--- NOTE | 2017-10-04 17:51 | PD ---
HPI Chief Complaint: Suicide Ideation/Attempt Time Seen by Provider: 16:13 Travel History International Travel<30 days: No Contact w/Intl Traveler<30days: No Traveled to known affect area: No History of Present Illness HPI 27-year-old male presents to the emergency Department voluntarily for psychiatric evaluation. He reports suicidal ideations for the past 3-4 days. Her onset by a lot of stress that he is going to in his life right now. He denies a plan. Denies history of suicidal attempts. Denies homicidal ideations. Denies illicit drug use. Reports occasional alcohol use. Denies auditory or visual hallucinations. Onset 3-4 days ago. Duration 3-4 days. Symptoms are moderate to severe in severity. No known relieving factors. As history of chronic back pain and takes Lortab that is prescribed to him. Denies significant past medical history. No primary care provider. Allergies to peanuts. Denies emergent medical complaints at this time. Denies chest pain , shortness of breath, abdominal pain, vomiting, fevers, change in urine or stool. No other modified factors or associated signs and symptoms. PFSH Past Medical History Asthma: Yes Anxiety: Yes Depression: Yes Diminished Hearing: No Respiratory: Yes (ASTHMA) Social History Alcohol Use: No Tobacco Use: No Substance Use: No Allergies-Medications (Allergen,Severity, Reaction): Coded Allergies: peanut (Unverified Allergy, Severe, Anaphylaxis, 06/22/17) *MDRO Multi-Drug Resistant Organism (Verified Adverse Reaction, Unknown, 06/22/17) MRSA (buttock)-02/15/17 Reported Meds & Prescriptions Reported Meds & Active Scripts Active Ventolin Hfa 18 GM Inh (Albuterol Sulfate) 90 Mcg/Act Aer 2 Puff INH Q4-6H PRN Reported [inhaler for asthma ] Albuterol Neb (Albuterol Sulfate) 0.63 Mg/3 Ml Neb 0.63 Mg NEB Review of Systems Except as stated in HPI: all other systems reviewed are Neg Physical Exam Narrative GENERAL: Well-nourished, well-developed male patient, in no acute distress SKIN: Warm and dry. HEAD: Atraumatic. Normocephalic. EYES: Pupils equal and round. ENT: Mucosa pink and moist. NECK: Supple. Trachea midline. CARDIOVASCULAR: Regular rate and rhythm. No murmur appreciated. RESPIRATORY: No accessory muscle use. Clear to auscultation. Breath sounds equal bilaterally. GASTROINTESTINAL: Abdomen soft, non-tender, nondistended. Hepatic and splenic margins not palpable. Bowel sounds are active 4 quadrants. MUSCULOSKELETAL: No obvious deformities. No clubbing. No cyanosis. No edema. BACK: No CVA tenderness. NEUROLOGICAL: Awake and alert. Oriented 3. No obvious cranial nerve deficits. Motor grossly within normal limits. Normal speech. Moves all extremities. 5/5 strength to all extremities. PSYCHIATRIC: No delusional thought processes. No hallucinations. Data Data Last Documented VS Vital Signs Date Time Temp Pulse Resp B/P (MAP) Pulse Ox O2 Delivery O2 Flow Rate FiO2 10/04/17 15:26 98.2 108 18 140/92 (108) 99 Orders Orders Complete Blood Count With Diff (10/04/17 15:55) Comprehensive Metabolic Panel (10/04/17 15:55) Psych Screen (10/04/17 15:55) Drug Screen, Random Urine (10/04/17 16:13) Thyroid Stimulating Hormone (10/04/17 16:13) Alcohol (Ethanol) (10/04/17 16:13) Labs Laboratory Tests Test 10/04/17 16:25 White Blood Count 7.3 TH/MM3 Red Blood Count 5.39 MIL/MM3 Hemoglobin 16.1 GM/DL Hematocrit 47.2 % Mean Corpuscular Volume 87.6 FL Mean Corpuscular Hemoglobin 29.8 PG Mean Corpuscular Hemoglobin Concent 34.0 % Red Cell Distribution Width 12.9 % Platelet Count 256 TH/MM3 Mean Platelet Volume 7.7 FL Neutrophils (%) (Auto) 76.8 % Lymphocytes (%) (Auto) 18.4 % Monocytes (%) (Auto) 3.6 % Eosinophils (%) (Auto) 0.5 % Basophils (%) (Auto) 0.7 % Neutrophils # (Auto) 5.6 TH/MM3 Lymphocytes # (Auto) 1.3 TH/MM3 Monocytes # (Auto) 0.3 TH/MM3 Eosinophils # (Auto) 0.0 TH/MM3 Basophils # (Auto) 0.0 TH/MM3 CBC Comment DIFF FINAL Differential Comment Blood Urea Nitrogen 13 MG/DL Creatinine 0.99 MG/DL Random Glucose 123 MG/DL Total Protein 8.1 GM/DL Albumin 4.4 GM/DL Calcium Level 9.1 MG/DL Alkaline Phosphatase 67 U/L Aspartate Amino Transf (AST/SGOT) 14 U/L Alanine Aminotransferase (ALT/SGPT) 14 U/L Total Bilirubin 0.5 MG/DL Sodium Level 140 MEQ/L Potassium Level 4.0 MEQ/L Chloride Level 106 MEQ/L Carbon Dioxide Level 29.2 MEQ/L Anion Gap 5 MEQ/L Estimat Glomerular Filtration Rate 91 ML/MIN Thyroid Stimulating Hormone 3rd Gen 0.334 uIU/ML Urine Opiates Screen POS Urine Barbiturates Screen NEG Urine Amphetamines Screen NEG Urine Benzodiazepines Screen NEG Urine Cocaine Screen NEG Urine Cannabinoids Screen NEG Ethyl Alcohol Level LESS THAN 3 MG/DL MDM Medical Decision Making Medical Screen Exam Complete: Yes Emergency Medical Condition: Yes Medical Record Reviewed: Yes Differential Diagnosis Suicidal ideation, suicidal threat, stress, medical clearance for psychiatric evaluation Narrative Course Patient presents voluntarily. Physical examination and vital signs are essentially unremarkable. Patient has no medical complaints to report. Psych screen has been ordered. If the laboratory results are unremarkable, the patient will be medically cleared for psychiatric evaluation and disposition. Diagnosis Primary Impression: Encounter for psychological evaluation Condition: Stable Maria Del Carmen Tracy Oct 04, 2017 17:51
[2017-10-04 18:59] VITALS: BP 136/80; PULSE 57; RESP 19; O2SAT 100
[2017-10-04 20:02] VITALS: BP 146/75; PULSE 72; RESP 17; O2SAT 98
[2017-10-05 02:01] VITALS: BP 137/63; PULSE 63; RESP 18; O2SAT 97
[2017-10-05 06:36] VITALS: BP 149/68; PULSE 58; RESP 18; O2SAT 97
--- NOTE | 2017-10-05 09:57 | PD ---
Physical Exam Date Seen by Provider: Oct 05, 2017 Time Seen by Provider: 09:55 Narrative 27-year-old male previously medically cleared for psychiatric evaluation, has been seen by psychiatric services and deemed psychiatrically stable for discharge at this time. Patient is to follow-up as per Dr. Valenzuela's note. Patient remains medically stable at discharge Data Data Last Documented VS Vital Signs Date Time Temp Pulse Resp B/P (MAP) Pulse Ox O2 Delivery O2 Flow Rate FiO2 10/05/17 06:36 58 18 149/68 (95) 97 Room Air 10/04/17 15:26 98.2 Orders Orders Complete Blood Count With Diff (10/04/17 15:55) Comprehensive Metabolic Panel (10/04/17 15:55) Psych Screen (10/04/17 15:55) Drug Screen, Random Urine (10/04/17 16:13) Thyroid Stimulating Hormone (10/04/17 16:13) Alcohol (Ethanol) (10/04/17 16:13) Diet Regular Basic (10/05/17 Breakfast) Diet Regular Basic (10/05/17 Lunch) Labs Laboratory Tests Test 10/04/17 16:25 White Blood Count 7.3 TH/MM3 Red Blood Count 5.39 MIL/MM3 Hemoglobin 16.1 GM/DL Hematocrit 47.2 % Mean Corpuscular Volume 87.6 FL Mean Corpuscular Hemoglobin 29.8 PG Mean Corpuscular Hemoglobin Concent 34.0 % Red Cell Distribution Width 12.9 % Platelet Count 256 TH/MM3 Mean Platelet Volume 7.7 FL Neutrophils (%) (Auto) 76.8 % Lymphocytes (%) (Auto) 18.4 % Monocytes (%) (Auto) 3.6 % Eosinophils (%) (Auto) 0.5 % Basophils (%) (Auto) 0.7 % Neutrophils # (Auto) 5.6 TH/MM3 Lymphocytes # (Auto) 1.3 TH/MM3 Monocytes # (Auto) 0.3 TH/MM3 Eosinophils # (Auto) 0.0 TH/MM3 Basophils # (Auto) 0.0 TH/MM3 CBC Comment DIFF FINAL Differential Comment Blood Urea Nitrogen 13 MG/DL Creatinine 0.99 MG/DL Random Glucose 123 MG/DL Total Protein 8.1 GM/DL Albumin 4.4 GM/DL Calcium Level 9.1 MG/DL Alkaline Phosphatase 67 U/L Aspartate Amino Transf (AST/SGOT) 14 U/L Alanine Aminotransferase (ALT/SGPT) 14 U/L Total Bilirubin 0.5 MG/DL Sodium Level 140 MEQ/L Potassium Level 4.0 MEQ/L Chloride Level 106 MEQ/L Carbon Dioxide Level 29.2 MEQ/L Anion Gap 5 MEQ/L Estimat Glomerular Filtration Rate 91 ML/MIN Thyroid Stimulating Hormone 3rd Gen 0.334 uIU/ML Urine Opiates Screen POS Urine Barbiturates Screen NEG Urine Amphetamines Screen NEG Urine Benzodiazepines Screen NEG Urine Cocaine Screen NEG Urine Cannabinoids Screen NEG Ethyl Alcohol Level LESS THAN 3 MG/DL MDM Medical Record Reviewed: Yes Supervised Visit with STEVEN: Yes Narrative Course 27-year-old male previously medically cleared for psychiatric evaluation, has been seen by psychiatric services and deemed psychiatrically stable for discharge at this time. Patient is to follow-up as per Dr. Valenzuela's note. Patient remains medically stable at discharge Diagnosis Primary Impression: Encounter for psychological evaluation Additional Impression: OPIOD USE DISORDER Referrals: [facility] Patient Instructions: General Instructions Departure Forms: Tests/Procedures Disposition: DISCHARGE HOME Condition: Stable Lc Vivar Oct 05, 2017 09:57
== END 2017-10-05 10:04 | disposition home or self-care (01) ==
LOC: NEPD 15:24 → NEPJ 10-05 10:04
DX: F11.90 Opioid use, unspecified, uncomplicated (principal); M54.9 Dorsalgia, unspecified; G89.29 Other chronic pain; J45.909 Unspecified asthma, uncomplicated; F41.9 Anxiety disorder, unspecified; F32.9 Major depressive disorder, single episode, unspecified; Z79.51 Long term (current) use of inhaled steroids
CPT/HCPCS: 80053; 80307; 84443; 85025; 99283